=== PATIENT | male | born 1990 | race Caucasian/White ===

== ENCOUNTER 2020-03-24 17:44 | Inpatient (IN) | payer MEDICARE, MEDICAID ==
[~2020-03-24] VITALS: Ht 180.3 cm; Wt 102.1 kg
[~2020-03-24 17:44] MED LIST: CLOZ100T32 PO; SULF-168 PO
[2020-03-24 18:42] LABS: AMPHET/METH SCREEN,URINE NEGATIVE (NEGATIVE); BARBITURATE SCREEN, URINE NEGATIVE (NEGATIVE); BENZODIAZEPINES SCREEN,URINE POSITIVE (NEGATIVE); CANNABINOID SCREEN,URINE POSITIVE (NEGATIVE); COCAINE SCREEN,URINE NEGATIVE (NEGATIVE); METHADONE SCREEN, URINE NEGATIVE (NEGATIVE); OPIATE SCREEN,URINE NEGATIVE (NEGATIVE); PHENCYCLIDINE SCREEN,URINE NEGATIVE (NEGATIVE)
[2020-03-24 18:56] LABS: BASOPHILS % (AUTO) 0.5 % (0.0-2.0); EOSINOPHILS % (AUTO) 1.7 % (1.0-6.0); HEMATOCRIT 45.3 % (41-53); HEMOGLOBIN 15.4 g/dL (13.5-17.5); LYMPHOCYTES # (AUTO) 4.3 K/uL (1.0-4.8); LYMPHOCYTES % (AUTO) 30.4 % (22.0-44.0); MEAN CORPUSCULAR HEMOGLOBIN 30.8 pg (26.0-34.0); MEAN CORPUSCULAR VOLUME 91 fL (80-100); MONOCYTES % (AUTO) 7.3 % (2.0-9.0); NEUTROPHILS # (AUTO) 8.4 K/uL (1.8-7.7); NEUTROPHILS % (AUTO) 60.1 % (40.0-70.0); PLATELET COUNT (AUTO) 252 K/uL (150-450); RED BLOOD CELL COUNT(AUTO) 5.01 MIL/uL (4.50-5.90); RED CELL DISTRIBUTION WIDTH 12.9 % (11.5-14.5)
[2020-03-24 19:10] LABS: CARBON DIOXIDE 27 mmol/L (22-29); CHLORIDE 104 mmol/L (98-107); POTASSIUM 3.6 mmol/L (3.5-5.1); SODIUM SERUM 140 mmol/L (136-145)
[2020-03-24 19:11] LABS: ALANINE AMINOTRANSFERASE 42 U/L (12-78); ALKALINE PHOSPHATASE 85 U/L (46-116); ANION GAP 9 mmol/L (8-16); ASPARTATE AMINOTRANSFERASE 20 U/L (15-37); BILIRUBIN,TOTAL 0.3 mg/dL (0.1-1.0); CALCIUM, TOTAL 8.9 mg/dL (8.8-10.5); CREATININE 0.82 mg/dL (0.60-1.30); GLOMERULAR FILTR. RATE CALC > 60 mL/min (>60); GLUCOSE,RANDOM 92 mg/dL (70-110); TOTAL PROTEIN, SERUM 7.7 g/dL (6.4-8.2)
[2020-03-24 19:21] LABS: UREA NITROGEN, BLOOD 13 mg/dL (7-18)
[2020-03-24] MEDS ORDERED: HALOPERIDOL 5 MG TABLET PO PRN (22:00)
[2020-03-24] MEDS ORDERED: ZOLPIDEM TARTRATE 10 MG TABLET PO PRN (22:00)
[2020-03-24 22:58] LABS: COVID AG,FIA SOURCE NASOPHARYNGEAL
[2020-03-25 00:15] VITALS: BP 125/78
[2020-03-25] MEDS ORDERED: INFLUENZA VIRUS VACCINE QVS 2020-21 (6MO+)/PF 60 MCG/0.5 ML SYRINGE IM ONE (01:00)
[2020-03-25 03:29] LABS: APPEARANCE,URINE CLEAR (CLEAR); BILIRUBIN,URINE NEGATIVE (NEGATIVE); GLUCOSE, URINE (UA) NEGATIVE (NEGATIVE); KETONES,URINE NEGATIVE (NEGATIVE); LEUKOCYTE ESTERASE ,URINE TRACE (NEGATIVE); NITRATE,URINE NEGATIVE (NEGATIVE); OCCULT BLOOD,URINE NEGATIVE (NEGATIVE); PH,URINE 5.5 (5.0-8.0); PROTEIN,URINE NEGATIVE (NEGATIVE); UROBILINOGEN,URINE 0.2 mg/dL (<=1.0)
[2020-03-25 03:37] LABS: BACTERIA,URINE Few /HPF (None Seen); RBC,URINE 0-2 /HPF (0-2); SQUAMOUS EPITHELIAL CELL,UR Rare /LPF (None Seen)
[2020-03-25] MEDS ORDERED: MAGNESIUM HYDROXIDE SUSPENSION 30 ML UDCUP PO PRN (08:00)
[2020-03-25] MEDS ORDERED: ALBUTEROL SULFATE HFA 90 MCG/PUFF 8 GM INHALER IH PRN (08:00)
[2020-03-25] MEDS ORDERED: NICOTINE 14 MG/24 HOUR PATCH TD PRN (08:00)
[2020-03-25] MEDS ORDERED: DOCUSATE SODIUM 100 MG CAPSULE PO PRN (08:00)
[2020-03-25] MEDS ORDERED: ACETAMINOPHEN 325 MG TABLET PO PRN (08:00)
[2020-03-25] MEDS ORDERED: ONDANSETRON HCL 4 MG TABLET PO PRN (08:00)
[2020-03-25] MEDS ORDERED: CloNIDine HCL 0.1 MG TABLET PO PRN (08:00)
[2020-03-25] MEDS ORDERED: PETROLATUM,WHITE 28 GM JELLY TP PRN (08:00)
[2020-03-25] MEDS ORDERED: GuaiFENesin/D-METHORPHAN [SUGAR-FREE] 200-20MG/10 ML SYRUP UDCUP PO PRN (08:00)
[2020-03-25] MEDS ORDERED: IBUPROFEN 400 MG TABLET PO PRN (08:00)
[2020-03-25] MEDS ORDERED: MAG HYDROX/AL HYDROX/SIMETH ES 30 ML SUSPENSION UDCUP PO PRN (08:00)
[2020-03-25] MEDS ORDERED: LOPERAMIDE HCL 2 MG CAPSULE PO PRN (08:00)
[2020-03-25 09:00] VITALS: BP 112/65
[2020-03-25 09:42] VITALS: BP 104/63
[2020-03-25 09:54] LABS: CHOL/HDL RATIO 6.2 (4.2-7.3)
[2020-03-25 16:46] VITALS: BP 117/73
[2020-03-25] MEDS: GABAPENTIN 300 MG CAPSULE PO SCH (16:59)
[2020-03-25] MEDS: CloZAPine 100 MG TABLET PO SCH (21:00)
[2020-03-26 09:16] VITALS: BP 115/68
[2020-03-26] MEDS: GABAPENTIN 300 MG CAPSULE PO SCH ×2 (09:29→17:38)
[2020-03-26] MEDS: CloZAPine 100 MG TABLET PO SCH ×2 (09:29→20:56)
[2020-03-26 16:00] VITALS: BP 123/73
[2020-03-27] VITALS: BP 105/65
[2020-03-27] MEDS: CloZAPine 100 MG TABLET PO SCH ×2 (08:39→20:16)
[2020-03-27] MEDS: GABAPENTIN 300 MG CAPSULE PO SCH ×2 (08:39→16:09)
[2020-03-27 08:58] VITALS: BP 120/78
[2020-03-27 16:00] VITALS: BP 117/64
[2020-03-28 06:31] LABS: BASOPHILS % (AUTO) 0.6 % (0.0-2.0); EOSINOPHILS % (AUTO) 2.2 % (1.0-6.0); HEMATOCRIT 45.5 % (41-53); HEMOGLOBIN 15.4 g/dL (13.5-17.5); LYMPHOCYTES # (AUTO) 2.6 K/uL (1.0-4.8); LYMPHOCYTES % (AUTO) 29.7 % (22.0-44.0); MEAN CORPUSCULAR HEMOGLOBIN 30.7 pg (26.0-34.0); MEAN CORPUSCULAR HGB CONC 33.9 G/dL (31.0-37.0); MEAN CORPUSCULAR VOLUME 91 fL (80-100); MONOCYTES # (AUTO) 0.9 K/uL (0.1-1.0); MONOCYTES % (AUTO) 10.1 % (2.0-9.0); NEUTROPHILS % (AUTO) 57.4 % (40.0-70.0); PLATELET COUNT (AUTO) 227 K/uL (150-450); RED BLOOD CELL COUNT(AUTO) 5.02 MIL/uL (4.50-5.90); RED CELL DISTRIBUTION WIDTH 13.2 % (11.5-14.5)
[2020-03-28] MEDS: CloZAPine 100 MG TABLET PO SCH ×2 (08:19→20:19)
[2020-03-28] MEDS: GABAPENTIN 300 MG CAPSULE PO SCH ×2 (08:19→16:13)
[2020-03-28 09:17] VITALS: BP 117/74
[2020-03-28 18:06] VITALS: BP 135/84
[2020-03-29 08:00] VITALS: BP 112/67
[2020-03-29] MEDS: GABAPENTIN 300 MG CAPSULE PO SCH ×2 (08:26→16:15)
[2020-03-29] MEDS: CloZAPine 100 MG TABLET PO SCH ×2 (08:26→20:22)
[2020-03-29] MEDS: LORazepam 2 MG TABLET PO PRN (14:40)
[2020-03-29 16:00] VITALS: BP 131/78
[2020-03-30 08:51] VITALS: BP 138/75
[2020-03-30] MEDS: CloZAPine 100 MG TABLET PO SCH ×2 (09:04→20:15)
[2020-03-30] MEDS: GABAPENTIN 300 MG CAPSULE PO SCH ×2 (09:04→16:25)
[2020-03-30 16:00] VITALS: BP 127/81
[2020-03-30] MEDS: LORazepam 2 MG TABLET PO PRN (18:12)
[2020-03-31 08:00] VITALS: BP 129/65
[2020-03-31] MEDS: CloZAPine 100 MG TABLET PO SCH ×2 (08:34→20:41)
[2020-03-31] MEDS: GABAPENTIN 300 MG CAPSULE PO SCH ×2 (08:34→16:32)
[2020-03-31 16:00] VITALS: BP 134/77
[2020-04-01 08:00] VITALS: BP 129/74
[2020-04-01] MEDS: GABAPENTIN 300 MG CAPSULE PO SCH ×2 (09:42→16:11)
[2020-04-01] MEDS: CloZAPine 100 MG TABLET PO SCH ×2 (09:42→20:45)
[2020-04-01 16:28] VITALS: BP 139/71
[2020-04-02 08:00] VITALS: BP 101/68
[2020-04-02] MEDS: GABAPENTIN 300 MG CAPSULE PO SCH (08:55)
[2020-04-02] MEDS: CloZAPine 100 MG TABLET PO SCH (08:55)
[2020-04-02] MEDS ORDERED: GABA-1181 PO (09:47)
== END 2020-04-02 12:20 | disposition home or self-care (01) | DRG 885 ==
LOC: EMS 17:44 → 3EX 22:00
PROVIDERS: ADMIT Psychiatry & Neurology Psychiatry; ATTEND Psychiatry & Neurology Psychiatry
DX: F20.0 Paranoid schizophrenia (principal); D72.829 Elevated white blood cell count, unspecified; E78.5 Hyperlipidemia, unspecified; E66.3 Overweight; F12.10 Cannabis abuse, uncomplicated; Z20.822 Contact with and (suspected) exposure to COVID-19; Z68.31 Body mass index [BMI] 31.0-31.9, adult; F41.9 Anxiety disorder, unspecified; F17.210 Nicotine dependence, cigarettes, uncomplicated
CPT/HCPCS: 87426; G0378; G0480

== ENCOUNTER 2020-06-18 14:38 | Emergency (ER) | payer MEDICARE, MEDICAID ==
[~2020-06-18] VITALS: Ht 182.9 cm; Wt 90.9 kg
[~2020-06-18 14:38] MED LIST changes: +GABA-1181 PO; -SULF-168 PO
[2020-06-18 14:46] VITALS: BP 121/72
[2020-06-18 15:48] LABS: AMPHET/METH SCREEN,URINE NEGATIVE (NEGATIVE); BARBITURATE SCREEN, URINE NEGATIVE (NEGATIVE); BENZODIAZEPINES SCREEN,URINE NEGATIVE (NEGATIVE); CANNABINOID SCREEN,URINE NEGATIVE (NEGATIVE); COCAINE SCREEN,URINE NEGATIVE (NEGATIVE); METHADONE SCREEN, URINE NEGATIVE (NEGATIVE); OPIATE SCREEN,URINE NEGATIVE (NEGATIVE)
[2020-06-18 15:49] LABS: PHENCYCLIDINE SCREEN,URINE NEGATIVE (NEGATIVE)
== END 2020-06-18 16:21 | disposition home or self-care (01) ==
LOC: EMS 14:45
DX: F20.9 Schizophrenia, unspecified (principal); F17.210 Nicotine dependence, cigarettes, uncomplicated
CPT/HCPCS: 99284